=== PATIENT | male | born 1930 | race Caucasian/White ===

== ENCOUNTER 2016-06-16 13:39 | Day surgery (SDC) | payer OTHER ==
[~2016-06-16 13:39] MED LIST: ACET325 PO; ASPI81TA45 PO; COUM3TAB PO; COUM6TAB PO; FURO1TAB93 PO; LISI-363 PO; SIMV10TA PO; TAMS5CAP PO; [UNRECOGNIZED DRUG - CODE] PO
[2016-06-16 14:09] VITALS: BP 145/68; PULSE 52; RESP 20; TEMP 97.5; O2SAT 94
[2016-06-17] MEDS ORDERED: AMIO200T PO (15:09)
[2016-06-17] MEDS ORDERED: JANT4TAB PO (15:09)
[2016-06-17] MEDS ORDERED: CHOL50008 PO (15:09)
[2016-06-17] MEDS ORDERED: TAMS0.4C4 PO (15:09)
[2016-06-17] MEDS ORDERED: VITA500C9 CHEW (15:09)
[2016-06-17] MEDS ORDERED: LISI40TA PO (15:09)
[2016-06-17] MEDS ORDERED: AMLO5TAB2 PO (15:09)
[2016-06-17] MEDS ORDERED: MULT1TAB84 PO (15:09)
--- NOTE | 2016-06-18 08:47 | RADRPT ---
EXAM DATE/TIME: 06/16/2016 14:13 [facility] COMPARISON : No previous studies available for comparison. 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 The patient subsequently underwent MRI imaging which confir med enhancement. This was followed by CT directed biopsy which was positive for renal cell carcinoma. The patient for evaluation for treatment of the lesion with cryoablation. PAST MEDICAL HISTORY : 1. Hypertension. 2. Diabetes mellitus 2. 3. Atrial fibrilation Enlarge prostate PAST SURGICAL HISTORY : umbilical hernia repair Social alcohol use. Tobacco;none. 1. NKDA MEDICATIONS: 1. jantoven 4 mg mg q.d. 2. amlodipine 5 mg q.h.s. 3. Flomax 0.4 q.h.s. 4. vitmin C 500 mg q.d. 5. Vitanin D 3 5000 ui q.d. 6. Amiodarone 200 mg q.d. 7. Centrum silver 1 tab q.d. lisinopril 40 mg q.d. PHYSICAL EXAMINATION: Limited physical examination was performed. Lungs: CTA. Cardiovascular: RRR Abdomen: Soft, nontender. Patient is post umbilical hernia repair. Extremities: Within normal limits. IMAGING STUDIES: The patient's previous CT scans and MRI scans from [facility] were reviewed. These do confirm a 3.1 cm mass in the right kidney suspicious for malignancy. ASSESSMENT: 86-year-old with a 3.1 cm right renal mass which biopsy confirmed for renal cell carcinoma. The locat ion of the mass is along the superior lateral margin of the kidney. Access to this may be somewhat di fficult. Patient is otherwise acceptable candidate for cryoablation. PLAN: We will have the patient return for the cryoablation procedure. Will place the patient in the scanner and assess the location of the mass to determine if the patient to be effectively positioned to allo w access for cryoablation. The risks, benefits and potential complications were discussed at length w ith the patient and his daughter. The patient understands these. 1. The patient was advised to discontinue his Coumadin. We will obtain the labs on arrival the elier wang of the procedure. TIME SPENT: 30 minutes. Jey Trevñio MD on June 18, 2016 at 8:39 Board Certified Radiologist. This report was verified electronically.
== END 2016-06-16 15:30 | disposition home or self-care (01) ==
LOC: HRAD 13:39 → HRIP 13:48 → HRAD 15:30
PROVIDERS: ATTEND Radiology Body Imaging
DX: C64.9 Malignant neoplasm of unspecified kidney, except renal pelvis (principal); I10 Essential (primary) hypertension; E11.9 Type 2 diabetes mellitus without complications; I48.91 Unspecified atrial fibrillation

== ENCOUNTER 2016-06-18 06:46 | Inpatient (IN) | payer OTHER, MEDICARE ==
[2016-06-18] VITALS (7 sets, daily range): BP systolic 123–153; BP diastolic 63–70; PULSE 48–60; RESP 20; TEMP 97.5–97.6; O2SAT 90–95
[~2016-06-18] VITALS: Ht 180.3 cm; Wt 76.5 kg
[~2016-06-18 06:46] MED LIST changes: +AMIO200T PO; +AMLO5TAB2 PO; -ASPI81TA45 PO; +CHOL50008 PO; -COUM3TAB PO; -COUM6TAB PO; -FURO1TAB93 PO; +JANT4TAB PO; +LISI40TA PO; +MULT1TAB84 PO; -SIMV10TA PO; +TAMS0.4C4 PO; -TAMS5CAP PO; +VITA500C9 CHEW; -[UNRECOGNIZED DRUG - CODE] PO
[2016-06-18] MEDS ORDERED: SODIUM CHLOR 0.9% 1000 ML INJ 1,000 ML IV SCH (07:15)
[2016-06-18] MEDS ORDERED: INSULIN HUMAN REGULAR 1,000 UNITS/10 ML VIAL SQ PRN (07:30)
[2016-06-18] MEDS ORDERED: LACTATED RINGER'S 1000 ML IV PRN (07:30)
[2016-06-18] MEDS ORDERED: POVIDONE IODINE 5% (ANTISEPSIS KIT) 4 APPLICATIONS EACH NARE PRN (07:30)
[2016-06-18] MEDS ORDERED: SODIUM CHLORID 0.9% 500 ML IV PRN (07:30)
[2016-06-18] MEDS ORDERED: METOPROLOL TARTRATE 25 MG TAB PO PRN (07:30)
[2016-06-18] MEDS ORDERED: CHLORHEXIDINE GLUCONATE 2 % 1 PACK (2 CLOTHS) TOPICAL PRN (07:30)
[2016-06-18] MEDS ORDERED: PROPOFOL 200 MG/20 ML AMP IV ONE (07:53)
[2016-06-18] MEDS ORDERED: ONDANSETRON HCL 4 MG/2 ML VIAL IV PUSH ONE (07:54)
[2016-06-18] MEDS ORDERED: NEOSTIGMINE 3 MG/3 ML SYR IV ONE (07:54)
[2016-06-18 08:25] LABS: AUTOMATED NEUTROPHIL # 4.1 TH/MM3 (1.8-7.7); BASOPHIL % 0.8 % (0.0-2.0); EOSINOPHIL # 0.3 TH/MM3 (0-0.4); EOSINOPHIL % 5.1 % (0.0-4.0); HEMATOCRIT 33.1 % (39.0-51.0); HEMO FLAGS DIFF FINAL; LYMPH % 14.7 % (9.0-44.0); LYMPHOCYTE # 0.9 TH/MM3 (1.0-4.8); MEAN CELL VOLUME 94.6 FL (80.0-100.0); MEAN CORPUSCULAR HGB CONC 32.8 % (32.0-36.0); MONO % 9.1 % (0.0-8.0); NEUT % 70.3 % (16.0-70.0); PLATELET COUNT 181 TH/MM3 (150-450); RED CELL DISTRIBUTION WIDTH 15.6 % (11.6-17.2); WHITE BLOOD COUNT 5.8 TH/MM3 (4.0-11.0)
--- NOTE | 2016-06-18 08:29 | EKG ---
Date Performed: 06/18/2016 Time Performed: 07:28:44 PTAGE: 86 years EKG: SINUS BRADYCARDIA WITH FIRST DEGREE AV BLOCK RIGHT BUNDLE BRANCH BLOCK LEFT ANTERIOR FASCIC ULAR BLOCK LEFT VENTRICULAR HYPERTROPHY AND ST-T CHANGE ABNORMAL ECG PREVIOUS TRACING : 03/14/2013 02.54 DOCTOR: Norm Amato Interpretating Date/Time 06/18/2016 08:28:21
[2016-06-18 08:37] LABS: APTT (PATIENT) 27.1 SEC (24.3-30.1); PROTHROMBIN TIME - PATIENT 11.3 SEC (9.8-11.6)
[2016-06-18 08:41] LABS: BICARBONATE 24.6 MEQ/L (21.0-32.0); POTASSIUM 4.1 MEQ/L (3.5-5.1)
[2016-06-18] MEDS ORDERED: LIDOCAINE 1%/EPINEPHrine 1:100,000 SOLN 20 ML VIAL ONE (09:49)
[2016-06-18] MEDS: ceFAZolin 2 GM PREMIX 50 ML IV SCH ×2 (10:30→16:43)
[2016-06-18] MEDS ORDERED: fentaNYL CITRATE 250 MCG/5 ML AMP ONE (10:45)
--- NOTE | 2016-06-18 12:20 | PD.RAD ---
Post Procedure Progress Note Pre Procedure Diagnosis: (1) Renal cell carcinoma of right kidney Post Procedure Diagnosis: (1) Renal cell carcinoma of right kidney Procedure Date: June 18, 2016 Supervising Radiologist: Jey Treviño Estimated blood loss: 5cc Plan of Activity Patient to Unit: ROPU Patient Condition: Good Additional Comments: Small perinephric hematoma following needle placement. No evidence of enlargement during or on post procedure CT. Pt. tolerated the procedure without difficulty. Full dictated report to follow. See PACS Report for procedural detail/treatment Jey Treviño MD June 18, 2016 12:20
[2016-06-18] MEDS ORDERED: DO NOT ADM ANY ANTICOAGULANT DRUGS PRN (12:30)
[2016-06-18] MEDS ORDERED: *RESP: ALBUTEROL 2.5 MG/3 ML NEB (PRN) PERIprocedural Use ONLY NEB ONE (13:20)
--- NOTE | 2016-06-18 13:44 | RADRPT ---
EXAM DATE/TIME: 06/18/2016 09:56 INDICATIONS : Right renal mass Anesthesia and pain control was provided by the Anesthesia department. Prophylactic antibiotics were administered with appropriate pre-procedure timing. Vancomycin within 2 hrs of procedure, Ancef (or alternative) within 1 hr of procedure start. Intra-procedural antibiotics were given as prescribed above. DEVICE(S): 1.) Cryoablation probe MEDICAL HISTORY : Hypertension. Congestive heart failure. SURGICAL HISTORY : Unobtainable ENCOUNTER: Initial ACUITY: 1 day PAIN SCORE: 0/10 LOCATION: Right flank PROCEDURE : 1. CT guided cryoablation. Under sterile conditions and using aseptic technique with CT guidance the mass was localized and sati sfactory approach was taken to access the lesion. Using automated exposure control and adjustment of the mA and/or kV according to patient size, radiation dose was kept as low as reasonably achievable to obtain optimal diagnostic quality images. The lesion along the lateral margin of the right kidney was easily identified. 2 [employer] Cryopr obes were employed using percutaneous CT-guided technique. Position within the lesion was confirmed. A freeze-thaw, freeze-thaw technique was employed and serial imaging demonstrated an ice ball encompa ssing the entire lesion. Post procedure images demonstrate expected postoperative changes without ev idence of hematoma. CONCLUSION: Uncomplicated cryoablation as above. Jey Treviño MD on June 18, 2016 at 13:41 Board Certified Radiologist. This report was verified electronically.
[2016-06-18 17:06] LABS: AUTOMATED NEUTROPHIL # 6.8 TH/MM3 (1.8-7.7); BASOPHIL % 0.3 % (0.0-2.0); EOSINOPHIL # 0.1 TH/MM3 (0-0.4); EOSINOPHIL % 1.2 % (0.0-4.0); HEMATOCRIT 30.2 % (39.0-51.0); HEMO FLAGS DIFF FINAL; LYMPH % 8.9 % (9.0-44.0); LYMPHOCYTE # 0.7 TH/MM3 (1.0-4.8); MEAN CELL VOLUME 95.3 FL (80.0-100.0); MEAN CORPUSCULAR HEMOGLOBIN 31.8 PG (27.0-34.0); MEAN CORPUSCULAR HGB CONC 33.4 % (32.0-36.0); MONO % 7.1 % (0.0-8.0); NEUT % 82.5 % (16.0-70.0); PLATELET COUNT 166 TH/MM3 (150-450); RED BLOOD COUNT 3.17 MIL/MM3 (4.50-5.90); RED CELL DISTRIBUTION WIDTH 15.7 % (11.6-17.2); WHITE BLOOD COUNT 8.2 TH/MM3 (4.0-11.0)
--- NOTE | 2016-06-18 21:10 | HHI.HP ---
[facility] Non[facility]Staff Admission Diagnosis Urinary retention, right renal cell carcinoma Diagnoses: (1) Renal cell carcinoma of right kidney (2) Urinary retention (3) Hematuria (4) Acute on chronic renal failure (5) Bradycardia Chief Complaint: renal cell carcinoma for ablation with post-procedure urinary retention Travel History International Travel<30 Days: No Contact w/Intl Traveler <30 Da: No Traveled to Known Affected Are: No History of Present Illness Mr. Talley is a 86 year-old male with a 3.1 cm renal cell carcinoma right kidney, atrial fibrillation on Coumadin and flecainide, diet controlled type 2 diabetes mellitus, hypertension, and BPH who presented to the hospital on 06/18/2016 for tissue cryoablation of a renal mass. Urinary retention occurred following procedure with concern for emboli from cryoablation causing obstruction. A Ann catheter was attempted in IR but could not be placed. Dr. Girish Hartley, urologist, to see for cystoscopy guided Ann insertion. The patient is seen in his hospital room. He reports that he had a "pre- arranged procedure" for right renal cell carcinoma which was diagnosed in October 2015 while he was hospitalized for diverticulitis. He says that he had to be admitted because anesthesia "messes everything up". He says he was unable to urinate and multiple people have a hard time trying to catheterize him. Finally, Dr. Hartley was able to catheterize him and explained to him that a valve between the bladder and the urethra was "closed". The catheter is noted to be draining a dark red bloody tinged urine. He reports occasional shortness of breath but denies any history of COPD. He denies any fevers, chest pain, nausea, vomiting, or diarrhea. He reports a history of urinary hesitancy due to BPH. He complains of vocal hoarseness following intubation for procedure today. He uses a 4 wheel walker at home for ambulation as he has long-standing paresthesias in his right leg (has had for years) that causes imbalance. He is very cautious when standing up and moving about because he is fearful of falling. He reports mild swelling in lower extremities. He denies coronary artery disease, COPD or any other breathing problems, thyroid dysfunction, seizures, and problems with blood clots such as DVT, PE or CVA. Dr. Allen Jeronimo is urologist Dr. 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 Past Surgical History Right renal cell carcinoma cryoablation by Dr. Treviño 06/18/16 Umbilical hernia surgery in the 1970s Basal and squamous cell skin cancer removals . 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 Ordered Medications Current Medications Sodium Chloride 1,000 ml @ 30 mls/hr Q24H IV Last administered on 06/18/16 07: 15; Start 06/18/16 at 07:15; Stop 06/19/16 at 07:14 Cefazolin Sodium/ Dextrose 50 ml @ 100 mls/hr TOBACCO EDUCATOR IV Last administered on 06/18/16 10:30; Start 06/18/16 at 07:15; Stop 06/21/16 at 07:14 Lactated Ringer's 1,000 ml @ 30 mls/hr Q24H PRN IV SEE LABEL COMMENTS; Start at 07:30; Stop 06/21/16 at 07:29 Sodium Chloride (NS 500 ml Inj) 500 ml @ 30 mls/hr [id number] PRN IV SEE LABEL COMMENTS; Start 06/18/16 at 07:30; Stop 06/21/16 at 07:29 Metoprolol Tartrate (Lopressor) 25 mg TOBACCO EDUCATOR PRN PO SEE LABEL COMMENTS; Start 06/18/16 at 07:30; Stop 06/21/16 at 07:29 Povidone Iodine (Betadine 5% Antisepsis Kit) 1 applic TOBACCO EDUCATOR PRN EACH NARE SEE LABEL COMMENTS; Start 06/18/16 at 07:30; Stop 06/21/16 at 07:29 Chlorhexidine Gluconate (Chlorhexidine 2% Cloth) 3 pack TOBACCO EDUCATOR PRN TOPICAL SEE LABEL COMMENTS; Start 06/18/16 at 07:30; Stop 06/21/16 at 07:29 Insulin Human Regular (NovoLIN R INJ) See Protocol Table ... TOBACCO EDUCATOR PRN SQ SEE PROTOCOL TABLE; Start 06/18/16 at 07:30; Stop 06/21/16 at 07:29 Lidocaine/ Epinephrine (Xylocaine-Epi 1%-1:100,000 Inj) 20 ml STK-MED ONCE .ROUTE ; Start 06/18/16 at 09:49; Stop 06/18/16 at 09:50; Status DC Fentanyl Citrate (fentaNYL INJ) 250 mcg STK-MED ONCE .ROUTE ; Start 06/18/16 at 10:45; Stop 06/18/16 at 10:46; Status DC Miscellaneous Information ALL NURSING DEPARTME... UNSCH PRN .XX SEE LABEL COMMENTS; Start 06/18/16 at 12:30; Stop 06/19/16 at 12:29 Albuterol Sulfate 2.5 mg 2.5 mg STK-MED ONCE NEB Last administered on 06/18/16t 13:20; Start 06/18/16 at 13:20; Stop 06/18/16 at 13:21; Status DC Sodium Chloride (1/2 NS 1000 ml Inj) 1,000 ml @ 84 mls/hr [id number] IV ; Start at 20:00 . Family History Older brother smoked cigarettes and age 52 y/o from lung cancer Another brother from leukemia age 83 y/o Mother with breast cancer Father with hypertension - cause of unknown . 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 Physical Exam Vital Signs Vital Signs Date Time Temp Pulse Resp B/P Pulse Ox O2 Delivery O2 Flow Rate FiO2 06/18/16 16:00 52 20 129/68 95 06/18/16 15:30 50 20 132/65 95 06/18/16 15:00 48 20 123/66 95 06/18/16 14:30 97.6 48 20 133/63 95 06/18/16 14:05 97.4 48 15 130/72 95 Nasal Cannula 3 06/18/16 13:45 48 15 122/64 95 Nasal Cannula 3 06/18/16 13:30 47 16 124/68 95 Nasal Cannula 3 06/18/16 13:15 50 15 121/60 96 Nasal Cannula 3 06/18/16 13:00 96.5 48 15 121/56 96 Nasal Cannula 3 06/18/16 12:45 50 15 121/60 96 Nasal Cannula 3 06/18/16 12:43 95.0 54 14 123/60 95 Nasal Cannula 3 06/18/16 07:03 97.6 54 20 148/64 90 Physical Exam GENERAL: This is a well-nourished, well-developed patient, in no apparent distress. SKIN: No rashes, ecchymoses or lesions. Cool and dry. HEAD: Atraumatic. Normocephalic. EYES: No scleral icterus. No injection or drainage. ENT: Nose without bleeding, purulent drainage. NECK: Trachea midline. No JVD or lymphadenopathy. CARDIOVASCULAR: Regular rate and rhythm without murmurs, gallops, or rubs. 1+ nonpitting edema in bilateral lower extremities. RESPIRATORY: Clear to auscultation. Breath sounds equal bilaterally. No wheezes , rales, or rhonchi. GASTROINTESTINAL: Abdomen soft, non-tender, nondistended. No guarding. MUSCULOSKELETAL: Extremities without clubbing, cyanosis, or edema. No calf tenderness. NEUROLOGICAL: Awake and alert. Motor and sensory grossly within normal limits. Normal speech. Resting tremors noted upper extremities. . Laboratory Laboratory Tests Test 06/18/16 06/18/16 07:55 16:55 White Blood Count 5.8 8.2 Red Blood Count 3.50 3.17 Hemoglobin 10.9 10.1 Hematocrit 33.1 30.2 Mean Corpuscular Volume 94.6 95.3 Mean Corpuscular Hemoglobin 31.0 31.8 Mean Corpuscular Hemoglobin 32.8 33.4 Concent Red Cell Distribution Width 15.6 15.7 Platelet Count 181 166 Mean Platelet Volume 9.0 8.5 Neutrophils (%) (Auto) 70.3 82.5 Lymphocytes (%) (Auto) 14.7 8.9 Monocytes (%) (Auto) 9.1 7.1 Eosinophils (%) (Auto) 5.1 1.2 Basophils (%) (Auto) 0.8 0.3 Neutrophils # (Auto) 4.1 6.8 Lymphocytes # (Auto) 0.9 0.7 Monocytes # (Auto) 0.5 0.6 Eosinophils # (Auto) 0.3 0.1 Basophils # (Auto) 0.0 0.0 CBC Comment DIFF FINAL DIFF FINAL Differential Comment Prothrombin Time 11.3 Prothromb Time International 1.0 Ratio Activated Partial 27.1 Thromboplast Time Sodium Level 141 Potassium Level 4.1 Chloride Level 110 Carbon Dioxide Level 24.6 Anion Gap 6 Blood Urea Nitrogen 48 Creatinine 2.11 Estimat Glomerular Filtration 30 Rate Random Glucose 115 Calcium Level 8.8 Result Diagram: 06/18/16 1655 06/18/16 [address] Guided Tissue Ablation 06/18/16 0924 Signed Impressions: Service Date/Time: Saturday, June 18, 2016 09:56 - CONCLUSION: Uncomplicated cryoablation as above. Jey Treviño MD . Assessment and Plan Problem List: (1) Renal cell carcinoma of right kidney ICD Code: C64.1 Status: Acute (2) Urinary retention ICD Code: R33.9 Status: Acute (3) Hematuria ICD Code: R31.9 Status: Acute (4) Bradycardia ICD Code: R00.1 Status: Acute (5) Acute on chronic renal failure ICD Code: N17.9 Status: Acute Assessment and Plan Mr. Talley is a 86 year-old male with a 3.1 cm renal cell carcinoma right kidney, atrial fibrillation on Coumadin and flecainide, hypertension, and BPH who presented to the hospital on 06/18/2016 for tissue cryoablation of a renal mass. Urinary retention occured following procedure with concern for emboli from cryoablation causing obstruction. A ann catheter was attempted in IR but could not be placed. Dr. Girish Hartley, urologist, to see for cystoscopy guided ann insertion. Right renal cell carcinoma s/p cryoablation with urinary retention and concern for embolic urinary tract obstruction - Urology consulted - Dr. Hartley for Ann catheter placement/assistance with retention Hematuria s/p catheter placement - hold Coumadin/Jantoven - repeat H&H at 06/19/16 at 0000 and CBC in a.m. - follow trends - flush Ann q2h prn blood clots Acute on stage 3 chronic kidney failure likely secondary to dehydration - BUN 48, creatinine 2.11, estimated GFR 30 on admission - hold Lisinopril for now - monitor bp closely - cautious IVF hydration with NS at 84 cc/hr - monitor closely for fluid overload given history of CHF - repeat BMP in a.m. - follow results - avoid nephrotoxins Bradycardia, asymptomatic - continuous cardiac telemetry to monitor for cardiac arrhythmias - monitor VS q4h DVT prophylaxis - SCDs - chemoprophylaxis contraindicated due to hematuria Written by Юлия Rosado, acting as scribe for Dr. William on 06/18/16 at 21:10. .This note was transcribed by scribe [Юлия Rosado]. I, Dr. Jose Armando William personally performed the history, physical exam, and medical decision making; and confirmed the accuracy of the information in the transcribed note. Authenticated by Dr. Jose Armando William on 06/18/16 at 21:10. 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 Problem Qualifiers (1) Acute on chronic renal failure: Qualified Code: N17.9 - Acute renal failure superimposed on stage 3 chronic kidney disease, unspecified acute renal failure type Юлия Rosado June 18, 2016 21:10 Jose Armando William MD Jul 28, 2016 11:56
[2016-06-18] MEDS ORDERED: TAMSULOSIN HCL 0.4 MG CAP PO SCH (21:15)
[2016-06-18] MEDS ORDERED: DEXTROSE 50% IN WATER 50 ML VIAL(D50) IV PUSH PRN (21:30)
[2016-06-18] MEDS ORDERED: GLUCAGON 1 MG/ML VIAL OTHER PRN (21:30)
[2016-06-18] MEDS ORDERED: ONDANSETRON HCL 4 MG/2 ML VIAL IVP PRN (22:00)
[2016-06-18] MEDS ORDERED: SODIUM CHLORIDE 0.9% FLUSH 10 ML FLUSH IV FLUSH PRN (22:00)
[2016-06-18] MEDS ORDERED: NALOXONE HCL 0.4 MG/ML AMP IV PRN (22:00)
[2016-06-18] MEDS ORDERED: ACETAMINOPHEN 325 MG TAB PO PRN (22:00)
[2016-06-18] MEDS: TAMSULOSIN HCL 0.4 MG CAP PO SCH (23:25)
[2016-06-18] MEDS: SODIUM CHLOR 0.45% 1000 ML INJ 1,000 ML IV SCH (23:27)
[2016-06-18 23:59] LABS: HEMATOCRIT 29.9 % (39.0-51.0); REVIEW FLAG FINAL
[2016-06-19] VITALS (9 sets, daily range): BP systolic 139–161; BP diastolic 61–72; PULSE 53–62; RESP 17–20; TEMP 97.1–99.3; O2SAT 91–96
[2016-06-19 05:37] LABS: BASOPHIL % 0.3 % (0.0-2.0); EOSINOPHIL # 0.1 TH/MM3 (0-0.4); EOSINOPHIL % 1.2 % (0.0-4.0); HEMATOCRIT 31.4 % (39.0-51.0); HEMO FLAGS DIFF FINAL; LYMPH % 4.9 % (9.0-44.0); LYMPHOCYTE # 0.4 TH/MM3 (1.0-4.8); MEAN CELL VOLUME 94.8 FL (80.0-100.0); MEAN CORPUSCULAR HEMOGLOBIN 31.5 PG (27.0-34.0); MEAN CORPUSCULAR HGB CONC 33.3 % (32.0-36.0); MONO % 8.1 % (0.0-8.0); NEUT % 85.5 % (16.0-70.0); PLATELET COUNT 152 TH/MM3 (150-450); RED BLOOD COUNT 3.31 MIL/MM3 (4.50-5.90); RED CELL DISTRIBUTION WIDTH 15.6 % (11.6-17.2); WHITE BLOOD COUNT 8.2 TH/MM3 (4.0-11.0)
[2016-06-19 05:58] LABS: BICARBONATE 22.7 MEQ/L (21.0-32.0)
[2016-06-19] MEDS: ASCORBIC ACID 500 MG TAB PO SCH (08:13)
[2016-06-19] MEDS: AMIODARONE 200 MG TAB PO SCH (08:13)
[2016-06-19] MEDS: MULTIVITAMINS/MINERALS THERAPEUTIC TAB PO SCH (08:13)
--- NOTE | 2016-06-19 08:25 | PD.CONS ---
HPI Service Urology Consult Requested By Primary Care Physician Non-Staff Diagnosis: (1) Renal cell carcinoma of right kidney ICD Code: C64.1 (2) Urinary retention ICD Code: R33.9 (3) Hematuria ICD Code: R31.9 (4) Bradycardia ICD Code: R00.1 (5) Acute on chronic renal failure ICD Code: N17.9 History of Present Illness 86-year-old male presented for cryoablation of a 3.1 cm right renal mass. Patient was found to be in urinary retention and a Dawson was unable to replace by the IR staff. Urology was consult with and initially a attempt was made to pass a catheter which was unsuccessful. Flexible cystoscopy was required to be performed at the bedside and a Dawson was placed over a wire. The patient has a history of BPH and is on Flomax. His urologist is Dr. Babin in [facility]. Review of Systems Constitutional: DENIES: Diaphoretic episodes Eyes: DENIES: Blurred vision Ears, nose, mouth, throat: DENIES: Tinnitus Cardiovascular: DENIES: Chest pain Gastrointestinal: DENIES: Abdominal pain Genitourinary: COMPLAINS OF: Sexual dysfunction Integumentary: COMPLAINS OF: Abnormal pigmentation Immunologic/allergic: DENIES: Eczema Neurologic: DENIES: Abnormal gait Psychiatric: DENIES: Anxiety Past Family Social History Past Medical History Diverticulitis CHF BPH Diabetes mellitus Hypertension Skin cancer Past Surgical History Cryoablation of right renal mass Excision of skin cancer Umbilical hernia repair Allergies: Coded Allergies: *MDRO Multi-Drug Resistant Organism (Verified Allergy, Unknown, 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 Family History Denies a family history of prostate cancer Social History Presently denies smoking or drinking Physical Exam Vital Signs Date Time Temp Pulse Resp B/P Pulse Ox O2 Delivery O2 Flow Rate FiO2 06/19/16 08:00 97.3 54 19 161/66 96 06/19/16 04:00 97.9 56 20 156/72 92 06/19/16 00:00 97.1 54 20 155/69 93 06/18/16 22:15 92 21 06/18/16 20:00 97.5 60 20 153/70 92 06/18/16 16:00 52 20 129/68 95 06/18/16 15:30 50 20 132/65 95 06/18/16 15:00 48 20 123/66 95 06/18/16 14:30 97.6 48 20 133/63 95 06/18/16 14:05 97.4 48 15 130/72 95 Nasal Cannula 3 06/18/16 13:45 48 15 122/64 95 Nasal Cannula 3 06/18/16 13:30 47 16 124/68 95 Nasal Cannula 3 06/18/16 13:15 50 15 121/60 96 Nasal Cannula 3 06/18/16 13:00 96.5 48 15 121/56 96 Nasal Cannula 3 06/18/16 12:45 50 15 121/60 96 Nasal Cannula 3 06/18/16 12:43 95.0 54 14 123/60 95 Nasal Cannula 3 Physical Exam GENERAL: This is a well-nourished, well-developed patient, in no apparent distress. SKIN: No rashes, ecchymoses or lesions. Cool and dry. HEAD: Atraumatic. Normocephalic. No temporal or scalp tenderness. EYES: Pupils equal round and reactive. Extraocular motions intact. No scleral icterus. No injection or drainage. ENT: Nose without bleeding, purulent drainage or septal hematoma. Throat without erythema, tonsillar hypertrophy or exudate. Uvula midline. Airway patent. NECK: Trachea midline. No JVD or lymphadenopathy. Supple, nontender, no meningeal signs. CARDIOVASCULAR: Regular rate and rhythm without murmurs, gallops, or rubs. RESPIRATORY: Clear to auscultation. Breath sounds equal bilaterally. No wheezes , rales, or rhonchi. GASTROINTESTINAL: Abdomen soft, non-tender, nondistended. No hepato-splenomegaly , or palpable masses. No guarding. GENITOURINARY: Normal phallus, uncircumcised testes descended MUSCULOSKELETAL: Extremities without clubbing, cyanosis, or edema. No joint tenderness, effusion, or edema noted. No calf tenderness. Negative Homans sign bilaterally. NEUROLOGICAL: Awake and alert. Cranial nerves II through XII intact. Motor and sensory grossly within normal limits. Five out of 5 muscle strength in all muscle groups. Normal speech. Laboratory Tests Test 06/18/16 06/18/16 06/19/16 16:55 23:53 04:31 White Blood Count 8.2 8.2 Red Blood Count 3.17 3.31 Hemoglobin 10.1 10.1 10.4 Hematocrit 30.2 29.9 31.4 Mean Corpuscular Volume 95.3 94.8 Mean Corpuscular Hemoglobin 31.8 31.5 Mean Corpuscular Hemoglobin 33.4 33.3 Concent Red Cell Distribution Width 15.7 15.6 Platelet Count 166 152 Mean Platelet Volume 8.5 9.6 Neutrophils (%) (Auto) 82.5 85.5 Lymphocytes (%) (Auto) 8.9 4.9 Monocytes (%) (Auto) 7.1 8.1 Eosinophils (%) (Auto) 1.2 1.2 Basophils (%) (Auto) 0.3 0.3 Neutrophils # (Auto) 6.8 7.0 Lymphocytes # (Auto) 0.7 0.4 Monocytes # (Auto) 0.6 0.7 Eosinophils # (Auto) 0.1 0.1 Basophils # (Auto) 0.0 0.0 CBC Comment DIFF FINAL DIFF FINAL Differential Comment Sodium Level 139 Potassium Level 5.0 Chloride Level 108 Carbon Dioxide Level 22.7 Anion Gap 8 Blood Urea Nitrogen 45 Creatinine 2.31 Estimat Glomerular Filtration 27 Rate Random Glucose 141 Calcium Level 8.4 Result Diagram: 06/19/16 0431 06/19/16 [address] Guided Tissue Ablation 06/18/1624 Signed Impressions: Service Date/Time: Saturday, June 18, 2016 09:56 - CONCLUSION: Uncomplicated cryoablation as above. Jey Treviño MD Hospital Course Procedure note: Patient was prepped and draped in usual sterile fashion. Flexible cystoscopy was performed at the bedside. Coapting prosthetic lobes were identified. The bladder was then entered and trabeculations were noted throughout. Wire was placed through the cystoscope and then a 16 [place]ican teller tip catheter was then passed over a wire. He tolerated procedure well. Assessment and Plan Assessment and Plan 86-year-old male status post right renal cryoablation for 3.1 cm renal mass. Flexible cystoscopy was performed at the bedside with placement of a catheter over a wire. Continue Flomax Follow-up with Dr. Jeronimo next week for a void trial. Girish Hartley DO June 19, 2016 08:25
[2016-06-19] MEDS ORDERED: PNEUMOCOCCAL POLYVALENT INJ 25 MCG/0.5 ML SYR IM ONE (09:00)
[2016-06-19] MEDS ORDERED: NON-FORMULARY DRUG (Ascorbic Acid (Vitamin C) 500 MG) CHEW SCH (09:00)
[2016-06-19] MEDS ORDERED: amLODIPine BESYLATE 5 MG TAB PO SCH (09:00)
[2016-06-19] MEDS: SODIUM CHLOR 0.45% 1000 ML INJ 1,000 ML IV SCH (09:12)
--- NOTE | 2016-06-19 09:34 | PD.RAD ---
Radiology Note 86 Y/O POD #1 right renal cryoablation. Pt was admitted yesterday due to mild hematuria. Pt seen today AFVSS. Urine has cleared. No complaints related to the procedure H/H= 12/16.4 which is stable compared to yesterday A/P Patient is stable urine has cleared. 1. DC ann 2. DC to home if cleared by admitting service Jey Treviño MD June 19, 2016 09:34
[2016-06-19] MEDS ORDERED: AMLO5TAB2 PO (09:54)
--- NOTE | 2016-06-19 09:58 | HHI.DCPOC ---
Discharge Care Plan Diagnosis: (1) CKD (chronic kidney disease) (2) Renal cell carcinoma of right kidney Additional Problems His follow-up with Dr. Jeronimo, as well as Dr. Treviño as outpatient. Goals to Promote Your Health * To prevent worsening of your condition and complications * To maintain your health at the optimal level Directions to Meet Your Goals Take your medications as prescribed Follow your dietary instruction Follow activity as directed Keep your appointments as scheduled Take your immunizations and boosters as scheduled If your symptoms worsen call your PCP, if no PCP go to Urgent Care Center or Emergency Room Smoking is Dangerous to Your Health. Avoid second hand smoke Call the 24-hour hour crisis hotline for domestic abuse at Allen Jacobs MD June 19, 2016 09:58
[2016-06-19] MEDS ORDERED: RESP: ALBUTEROL 2.5 MG/IPRATROPIUM 0.5 MG NEB (SCH) NEB ONE (12:15)
[2016-06-19 13:05] LABS: BLOOD GAS BASE EXCESS -3.1 mmol/L (-2-2); BLOOD GAS HCO3 21 mmol/L (22-26); BLOOD GAS METHEMOGLOBIN 0.9 % (0-2); BLOOD GAS O2 HGB SATURATION 87 % (90-100); BLOOD GAS OXYGEN CONTENT 13.3 Vol % (12.0-20.0); BLOOD GAS PCO2 37 mmHg (38-42); BLOOD GAS PO2 57 mmHg (61-120); BLOOD GAS TOTAL HGB 10.8 G/DL (12.0-16.0); TEMP CORR TO 98.6
[2016-06-19 13:08] LABS: OXYGEN DEVICE NASAL CANNULA
[2016-06-19 13:09] LABS: DRAW SITE RT RADIAL; LITER FLOW 3 L/M; NUMBER OF ARTERIAL PUNCTURES 1; ULNAR PULSE PRESENT
[2016-06-19 13:11] LABS: CRITICAL VALUE YES; STAT NO
--- NOTE | 2016-06-19 13:21 | RADRPT ---
EXAM DATE/TIME: 06/19/2016 12:14 [facility] COMPARISON: CHEST SINGLE AP, March 13, 2013, 14:57. INDICATIONS : Short of breath. MEDICAL HISTORY : Hypertension. Congestive heart failure. SURGICAL HISTORY : None. ENCOUNTER: Subsequent ACUITY: 2 days PAIN SCORE: 0/10 LOCATION: Bilateral chest FINDINGS: A single portable frontal view the chest shows bibasilar pulmonary infiltrates. Tiny right effusion. Heart is enlarged. Pulmonary vascular engorgement observed. A degenerative and scoliotic spine. CONCLUSION: Pulmonary edema. Naeem Avelar Jr., MD on June 19, 2016 at 13:18 Board Certified Radiologist. This report was verified electronically.
[2016-06-19] MEDS ORDERED: FUROSEMIDE 40 MG/4 ML VIAL IV PUSH ONE (15:15)
--- NOTE | 2016-06-19 15:34 | HHI.PR ---
Subjective Remarks Patient seen this morning around 10:30 AM. Says he is feeling all right. Reports mild right flank discomfort which improved with Tylenol. Denies any shortness breath, denies any cough however is on 2 L oxygen. Patient does have what he says is chronic bilateral lower extremity edema Objective Vital Signs Date Time Temp Pulse Resp B/P Pulse Ox O2 Delivery O2 Flow Rate FiO2 06/19/16 12:46 92 Nasal Cannula 3.00 06/19/16 12:00 98.2 53 17 139/61 92 06/19/16 09:15 Nasal Cannula 2.00 06/19/16 09:15 58 06/19/16 08:00 97.3 54 19 161/66 96 06/19/16 04:00 97.9 56 20 156/72 92 06/19/16 00:00 97.1 54 20 155/69 93 06/18/16 22:15 92 21 06/18/16 20:00 97.5 60 20 153/70 92 06/18/16 16:00 52 20 129/68 95 I/O 06/18/16 06/18/16 06/18/16 06/19/16 06/19/16 06/19/16 07:00 15:00 23:00 07:00 15:00 23:00 Intake Total 800 ml 288 ml 603 ml 840 ml Output Total 0 ml 625 ml 125 ml 700 ml Balance 800 ml -337 ml 478 ml 140 ml Intake Oral 120 ml 120 ml 840 ml IV Total 0 ml 168 ml 483 ml Other 800 ml Output Urine Total 0 ml 625 ml 125 ml 700 ml # Bowel Movements 0 0 0 Result Diagram: 06/19/16 0431 06/19/16 0431 Imaging Last Impressions Chest X-Ray 06/19/16 0000 Signed Impressions: Service Date/Time: June 12:14 - CONCLUSION: Pulmonary edema. Naeem Avelar Jr., MD CT Guided Tissue Ablation 06/18/16 0924 Signed Impressions: Service Date/Time: Saturday, June 18, 2016 09:56 - CONCLUSION: Uncomplicated cryoablation as above. Jey Treviño MD Objective Remarks GENERAL: Patient lying in bed. Does appear to be breathing rather heavily on 2 L of oxygen. He is alert and oriented 3. SKIN: Warm and dry. HEAD: Normocephalic. EYES: No scleral icterus. No injection or drainage. NECK: Supple, trachea midline. No JVD. CARDIOVASCULAR: Regular rate and rhythm without murmurs, gallops, or rubs. RESPIRATORY: Breath sounds equal bilaterally. No accessory muscle use. GASTROINTESTINAL: Abdomen soft, non-tender, nondistended. MUSCULOSKELETAL: No cyanosis. 2+ bilateral lower extremity edema. No erythema. Patient says this is chronic and unchanged. BACK: Nontender without obvious deformity. No CVA tenderness. A/P Assessment and Plan Mr. Talley is a 86 year-old male with a 3.1 cm renal cell carcinoma right kidney, atrial fibrillation on Coumadin and flecainide, hypertension, and BPH who presented to the hospital on 06/18/2016 for tissue cryoablation of a renal mass. Urinary retention occured following procedure with concern for emboli from cryoablation causing obstruction. A ann catheter was attempted in IR but could not be placed. Dr. Girish Hartley, urologist, to see for cystoscopy guided ann insertion. //Right renal cell carcinoma s/p cryoablation 06/18/16 with urinary retention and concern for embolic urinary tract obstruction - Urology consulted - Dr. Hartley for Ann catheter placement/assistance with retention. -06/19. Discussed with Dr. Treviño. Nursing called urology, who recommends leaving Ann in due to difficult Ann insertion and high risk of obstruction. He'll need follow-up with urology, as well as Dr. Treviño as outpatient. //Hematuria s/p catheter placement - Continue to hold Coumadin/Jantoven -06/19 Improved, light with no clots currently.- flush Ann q2h prn blood clots -We'll need to leave Ann in with leg bag, follow-up with urology as outpatient. Appreciate urology assistance. //Hypoxic respiratory failure. Acute on 06/19 // CHF exacerbation acute on 06/19. Secondary to fluid overload from IV fluids -06/19. Pulse ox in the 70s on room air. Chest x-ray ordered, personally reviewed with bilateral pulmonary edema. ABG with hypoxia. Likely secondary to IV fluids. BNP moderately elevated in the 200s. Give Lasix 40 mg IV 1 continue to monitor intake and output. Discussed with nursing. //Acute on stage 3 chronic kidney failure - BUN 48, creatinine 2.11, estimated GFR 30 on admission - Continue to hold Lisinopril for now - monitor bp closely -06/19 Discontinue IV hydration secondary to CHF exacerbation. -Continue to monitor kidney function and avoid nephrotoxins. Expect to worsen slightly secondary to renal ablation. //Type 2 diabetes mellitus. Glucose appears diet-controlled. Diabetic diet Bradycardia, asymptomatic - continuous cardiac telemetry to monitor for cardiac arrhythmias - monitor VS q4h DVT prophylaxis - SCDs - chemoprophylaxis contraindicated due to hematuria Discharge Planning Pending treatment of CHF exacerbation. Patient will need follow-up urology, Dr. Treviño as outpatient. Allen Jacobs MD June 19, 2016 15:34
--- NOTE | 2016-06-19 17:02 | EC ---
Study Study Date:06/19/2016 STUDY CONCLUSIONS SUMMARY - Left ventricle: The cavity size was normal. Wall thickness was normal. Systolic function was normal. The estimated ejection fraction was in the range of 55% to 60%. Wall motion was normal; there were no regional wall motion abnormalities. - Aortic valve: Valve area: 2.47cm^2(VTI). Valve area: 2.25cm^2 (Vmax). - Mitral valve: Mild regurgitation. - Tricuspid valve: Mild regurgitation. - Pulmonary arteries: Systolic pressure was moderately to severely increased. PA peak pressure: 64mm Hg (S). - Pericardium, extracardiac: There was a left pleural effusion. If LV function is below 40, please consider prescribing an ACEI or ARB or document rationale for non-use. PROCEDURE DATA STUDY STATUS: Elective. Procedure: Transthoracic echocardiography. Image quality was good. Scanning was performed from the parasternal, apical, and subcostal acoustic windows. Study completion: The patient tolerated the procedure well. Transthoracic echocardiography. M-mode, complete 2D, complete spectral Doppler, and color Doppler. Height: Height: 71in. Weight: Weight: 167.7lb. Body mass index: BMI: 23.4kg/m^2. Body surface area: BSA: 1.96m^2. Patient status: Inpatient. CARDIAC ANATOMY LEFT VENTRICLE: The cavity size was normal. Wall thickness was normal. Systolic function was normal. The estimated ejection fraction was in the range of 55% to 60%. Wall motion was normal; there were no regional wall motion abnormalities. AORTIC VALVE: Trileaflet; normal thickness leaflets. Doppler: Transvalvular velocity was within the normal range. There was no stenosis. No regurgitation. Valve area: 2.47cm^2(VTI). Indexed valve area: 1.26cm^2/m^2 (VTI). Valve area: 2.25cm^2 (Vmax). Indexed valve area: 1.15cm^2/m^2 (Vmax). Mean gradient: 9mm Hg (S). Peak gradient: 16mm Hg (S). AORTA: Aortic root: The aortic root was normal in size. MITRAL VALVE: Structurally normal valve. Doppler: Transvalvular velocity was within the normal range. There was no evidence for stenosis. Mild regurgitation. Peak gradient: 3mm Hg (D). LEFT ATRIUM: The atrium was normal in size. RIGHT VENTRICLE: The cavity size was normal. Wall thickness was normal. PULMONIC VALVE: Doppler: Transvalvular velocity was within the normal range. There was no evidence for stenosis. No regurgitation. TRICUSPID VALVE: Structurally normal valve. Doppler: Transvalvular velocity was within the normal range. Mild regurgitation. PULMONARY ARTERY: Systolic pressure was moderately to severely increased. RIGHT ATRIUM: The atrium was normal in size. PERICARDIUM: There was no pericardial effusion. SYSTEMIC VEINS: Inferior vena cava: The vessel was normal in size. Pleura: There was a left pleural effusion. Patient weight: 167.7lb _Ejection fraction:_ 65-75% _Fractional shortening:_ 32% up to 5Kg 5-11.5Kg 11.6-22.9Kg 23-45Kg 45-57Kg Aortic Root 7-13 <17 13-22 17-27 17-27 LA diam 6-13 <23 24-38 33-47 37-40 RVID 10-17 7-15 7-15 7-18 8-17 LVIDd 12-22 <32 24-38 33-47 37-40 LVPW 2-4 3-6 5-7 6-8 7-8 IVS 2-4 3-6 5-7 6-8 7-8 BASIC MEASUREMENTS ADULT NORMAL Left ventricle LV internal dimension, ED, chordal 46.3 mm 43-52 level, PLAX LV internal dimension, ES, chordal 34 mm 23-38 level, PLAX Fractional shortening, chordal level, *27 % >29 PLAX LV posterior wall thickness, ED 11.3 mm IVS/LVPW ratio, ED 1 <1.3 Ventricular septum Septal thickness, ED 11.3 mm Aortic valve Leaflet separation 16 mm 15-26 Aorta Root diameter, ED 31 mm Left atrium Anterior-posterior dimension 42 mm Anterior-posterior dimension index 2.14 cm/m^2 <2.2 BASIC MEASUREMENTS ADULT NORMAL Aortic valve Leaflet separation 16 mm 15-26 DOPPLER MEASUREMENTS ADULT NORMAL Main pulmonary artery Pressure, S *64 mm Hg =30 Aortic valve Peak velocity, S 203 cm/s Mean velocity, S 136 cm/s VTI, S 44.7 cm Mean gradient, S 9 mm Hg Peak gradient, S 16 mm Hg Valve area, VTI 2.47 cm^2 Valve area index, VTI 1.26 cm^2/m^2 Valve area, Vmax 2.25 cm^2 Valve area index, Vmax 1.15 cm^2/m^2 Mitral valve Peak E-wave velocity 91.8 cm/s Deceleration time *268 ms 150-230 Peak gradient, D 3 mm Hg Tricuspid valve Regurgitant peak velocity 375 cm/s Peak RV-RA gradient, S 56 mm Hg Maximal regurgitant velocity 375 cm/s Systemic veins Estimated CVP 10 mm Hg Right ventricle RV pressure, S *66 mm Hg <30 Pulmonic valve Peak velocity, S 61.7 cm/s LEGEND: Mean values are shown as u=mean value. Asterisk (*) pretty values outside specified normal range. Prepared and signed by Norm Amato [id number]
--- NOTE | 2016-06-19 17:42 | PD.CONS ---
HPI Service cardiology Consult Requested By Reason for Consult CHF Primary Care Physician Non-Staff History of Present Illness 86 year-old male with cardiac history significant for atrial fibrillation on Coumadin, RBBB, hypertension, diastolic LV dysfunction admitted on 06/18/2016 for tissue cryoablation of a renal mass. Hospital stay has been complicated by urinary retention, acute on chronic renal failure, hematuria and heart failure. Cardiology has been consulted regarding heart failure. He reports an episode of SOB post op in the setting of IV hydration. Denies chest pain, palpitations, PND, leg edema, syncope, fever, chills, nausea, vomiting or diarrhea. Review of Systems Consitutional: DENIES: Fatigue, Fever, Chills, Weight gain, Weight loss Eyes: DENIES: Amaurosis Fugax, Change in vision HEENT: DENIES: Lightheadedness, Change in hearing Respiratory: DENIES: See HPI, Cough, Snoring, Shortness of breath, Wheezing, Sputum production Cardiovascular: DENIES: See HPI, Chest pain, Palpitations, Syncope, Tachycardia Gastrointestinal: DENIES: Nausea, Vomiting, Change in bowel habits, Reflux, Bloody stools, Melena Genitourinary: DENIES: Urinary incontinence, Difficulty voiding Integumentary: DENIES: Rash Neurologic: DENIES: Tingling or numbness, Memory problems, Poor Balance, Stroke symptoms Musculoskeletal: DENIES: Joint pain, Muscle pain, Limited range of motion, Back pain Psychiatric: DENIES: Anxiety, Depression, Sleep disturbances Hematologic: DENIES: Bruising tendencies, Bleeding tendencies Endocrine: DENIES: Weight gain, Weight loss, Thyroid disease Past Family Social History Allergies: Coded Allergies: *MDRO Multi-Drug Resistant Organism (Verified Allergy, Unknown, 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 Past Medical History Diastolic HF Afib on OAC HTN RBBB Renal Mass CKD III BPH Reported Medications Reported Meds & Active Scripts Active Amlodipine (Amlodipine Besylate) 5 Mg Tab 10 Mg PO DAILY Reported Multivitamin Adults (Multiple Vitamins W/ Minerals) 1 Tab 1 Tab PO DAILY Tamsulosin (Tamsulosin HCl) 0.4 Mg Cap 0.4 Mg PO HS Jantoven (Warfarin) 4 Mg Tab 4 Mg PO DAILY Vitamin D3 (Cholecalciferol) 5,000 Unit Tab 5,000 Units PO DAILY Vitamin C (Ascorbic Acid) 500 Mg Chew 500 Mg CHEW DAILY Lisinopril 40 Mg Tab 40 Mg PO DAILY Amiodarone (Amiodarone HCl) 200 Mg Tab 200 Mg PO DAILY Active Ordered Medications Current Medications Medications (Trade) Dose Ordered Sig/Giancarlo Route Start Time Stop Time Status Last Admin (NS 500 ml Inj) 500 ml @ 30 mls/hr [id number] PRN IV 06/18/16 07:30 06/21/16 07:29 (Cordarone) 200 mg DAILY PO 06/19/16 09:00 06/19/16 08:13 (Norvasc) 5 mg DAILY PO 06/19/16 09:00 06/19/16 08:13 (Theragran M Tab) 1 tab DAILY PO 06/19/16 09:00 06/19/16 08:13 (Vitamin C) 500 mg DAILY PO 06/19/16 09:00 06/19/16 08:13 (D50w (Vial) Inj) 25 ml UNSCH PRN IV PUSH 06/18/16 21:30 (Glucagon Inj) 1 mg UNSCH PRN OTHER 06/18/16 21:30 (Flomax) 0.4 mg HS PO 06/18/16 21:45 06/18/16 23:25 (NS Flush) 2 ml UNSCH PRN IV FLUSH 06/18/16 22:00 (Tylenol) 650 mg Q4H PRN PO 06/18/16 22:00 06/19/16 08:13 (Zofran Inj) 4 mg Q6H PRN IVP 06/18/16 22:00 (Narcan Inj) 0.4 mg UNSCH PRN IV 06/18/16 22:00 Family History Noncontributory Social History No alcohol No smoking No illicit drug use Physical Exam Vital Signs Vital Signs Date Time Temp Pulse Resp B/P Pulse Ox O2 Delivery O2 Flow Rate FiO2 06/19/16 16:54 91 Nasal Cannula 4.00 06/19/16 16:00 97.2 62 17 161/64 91 06/19/16 12:46 92 Nasal Cannula 3.00 06/19/16 12:00 98.2 53 17 139/61 92 06/19/16 09:15 Nasal Cannula 2.00 06/19/16 09:15 58 06/19/16 08:00 97.3 54 19 161/66 96 06/19/16 04:00 97.9 56 20 156/72 92 06/19/16 00:00 97.1 54 20 155/69 93 06/18/16 22:15 92 21 06/18/16 20:00 97.5 60 20 153/70 92 Physical Exam GENERAL: Well-nourished, well-developed patient. SKIN: Warm and dry. HEAD: Normocephalic. EYES: No scleral icterus. No injection or drainage. NECK: Supple, trachea midline. No JVD or lymphadenopathy. CARDIOVASCULAR: Regular rate and rhythm without murmurs, gallops, or rubs. RESPIRATORY: Breath sounds equal bilaterally. No accessory muscle use. GASTROINTESTINAL: Abdomen soft, non-tender, nondistended. EXTREMITIES: No cyanosis, or edema. NEUROLOGICAL: Awake, alert, and oriented x 3. Non-focal. Laboratory Laboratory Tests Test 06/18/16 06/19/16 06/19/16 23:53 04:31 12:54 Hemoglobin 10.1 10.4 Hematocrit 29.9 31.4 White Blood Count 8.2 Red Blood Count 3.31 Mean Corpuscular Volume 94.8 Mean Corpuscular Hemoglobin 31.5 Mean Corpuscular Hemoglobin 33.3 Concent Red Cell Distribution Width 15.6 Platelet Count 152 Mean Platelet Volume 9.6 Neutrophils (%) (Auto) 85.5 Lymphocytes (%) (Auto) 4.9 Monocytes (%) (Auto) 8.1 Eosinophils (%) (Auto) 1.2 Basophils (%) (Auto) 0.3 Neutrophils # (Auto) 7.0 Lymphocytes # (Auto) 0.4 Monocytes # (Auto) 0.7 Eosinophils # (Auto) 0.1 Basophils # (Auto) 0.0 CBC Comment DIFF FINAL Differential Comment Sodium Level 139 Potassium Level 5.0 Chloride Level 108 Carbon Dioxide Level 22.7 Anion Gap 8 Blood Urea Nitrogen 45 Creatinine 2.31 Estimat Glomerular Filtration 27 Rate Random Glucose 141 Calcium Level 8.4 B-Type Natriuretic Peptide 294 Blood Gas Puncture Site RT RADIAL Blood Gas Patient Temperature 98.6 Blood Gas HCO3 21 Blood Gas Base Excess -3.1 Blood Gas Oxygen Saturation 87 Arterial Blood pH 7.38 Arterial Blood Partial 37 Pressure CO2 Arterial Blood Partial 57 Pressure O2 Arterial Blood Oxygen Content 13.3 Arterial Blood 2.0 Carboxyhemoglobin Arterial Blood Methemoglobin 0.9 Blood Gas Hemoglobin 10.8 Oxygen Delivery Device NASAL CANNULA Blood Gas Liter Flow 3 Result Diagram: 06/19/16 0431 06/19/16 0431 Imaging Last Impressions Chest X-Ray 06/19/16 0000 Signed Impressions: Service Date/Time: June 12:14 - CONCLUSION: Pulmonary edema. Naeem Avelar Jr., MD CT Guided Tissue Ablation 06/18/16 0924 Signed Impressions: Service Date/Time: Saturday, June 18, 2016 09:56 - CONCLUSION: Uncomplicated cryoablation as above. Jey Treviño MD Assessment and Plan Problem List: (1) Diastolic CHF Assessment and Plan: 86 year-old male with acute on chronic diastolic heart failure in the setting of recent urological procedure, worsening CKD and generous IV hydration. He remains afebrile, hemodynamically stable with no CV complaints. He has chronic Afib on chronic oral anticoagulation which has been stopped due to hematuria. Echocardiogram done today showed preserved LV systolic function. Recommendations: 1. Gentle IV diuresis 2. Avoid electrolytes abnormalities 3. Strict I&O 4. Cont Norvasc and Amio 5. Hold Lisinopril due to THERESA 6. Low Salt diet 7. Consider Nephro consult 8. Daily weight 9. Encourage ambulation and incentive spirometry 10. Resume anticoagulation when cleared from urological standpoint Thank you for the opportunity to participate in the care of this patient Will be available on a PRN basis for any other questions or concerns (2) Hypertension (3) Atrial fibrillation (4) Renal cell carcinoma of right kidney (5) Acute on chronic renal failure John Monsivais MD June 19, 2016 17:42
[2016-06-19 22:09] LABS: HEMOGLOBIN A1a 1.4 %; HEMOGLOBIN A1b 1.9 %; HEMOGLOBIN Ao 83.5 %
[2016-06-19] MEDS: TAMSULOSIN HCL 0.4 MG CAP PO SCH (22:26)
[2016-06-20] VITALS (7 sets, daily range): BP systolic 154–180; BP diastolic 66–80; PULSE 61–73; RESP 16–20; TEMP 97.4–99.3; O2SAT 90–95
[2016-06-20 05:00] LABS: AUTOMATED NEUTROPHIL # 9.5 TH/MM3 (1.8-7.7); BASOPHIL % 0.2 % (0.0-2.0); EOSINOPHIL % 0.2 % (0.0-4.0); HEMATOCRIT 33.9 % (39.0-51.0); LYMPH % 4.7 % (9.0-44.0); LYMPHOCYTE # 0.5 TH/MM3 (1.0-4.8); MEAN CELL VOLUME 95.1 FL (80.0-100.0); MEAN CORPUSCULAR HEMOGLOBIN 30.9 PG (27.0-34.0); MEAN CORPUSCULAR HGB CONC 32.5 % (32.0-36.0); MONO % 8.9 % (0.0-8.0); PLATELET COUNT 144 TH/MM3 (150-450); RED BLOOD COUNT 3.56 MIL/MM3 (4.50-5.90); RED CELL DISTRIBUTION WIDTH 15.5 % (11.6-17.2)
[2016-06-20 05:02] LABS: HEMO FLAGS AUTO DIFF
[2016-06-20 05:19] LABS: BICARBONATE 23.7 MEQ/L (21.0-32.0); POTASSIUM 4.6 MEQ/L (3.5-5.1)
[2016-06-20 07:02] LABS: PLATELET ESTIMATE SMEAR LOW (NORMAL); PLATELET MORPHOLOGY NORMAL (NORMAL); SCAN/DIFF AUTO DIFF CONFIRMED
[2016-06-20] MEDS: MULTIVITAMINS/MINERALS THERAPEUTIC TAB PO SCH (09:30)
[2016-06-20] MEDS: ASCORBIC ACID 500 MG TAB PO SCH (09:31)
[2016-06-20] MEDS: AMIODARONE 200 MG TAB PO SCH (09:31)
--- NOTE | 2016-06-20 10:51 | RADRPT ---
EXAM DATE/TIME: 06/20/2016 10:21 [facility] COMPARISON: CHEST SINGLE AP, June 19, 2016, 12:14. INDICATIONS : Congestive heart failure MEDICAL HISTORY : Hypertension. Congestive heart failure. SURGICAL HISTORY : None. ENCOUNTER: Subsequent ACUITY: 3 days PAIN SCORE: Non-responsive. LOCATION: Bilateral chest FINDINGS: There is persistence of cardiac enlargement with mild vascular congestion, central interstitial promi nence and small effusions. There has been slight improvement from yesterday's exam. CONCLUSION: Slightly improved CHF Rome Peterson MD on June 20, 2016 at 10:46 Board Certified Radiologist. This report was verified electronically.
[2016-06-20] MEDS: TAMSULOSIN HCL 0.4 MG CAP PO SCH (20:37)
--- NOTE | 2016-06-20 23:35 | HHI.PR ---
Subjective Remarks Patient seen this morning around 9:30 AM. Patient reports generalized fatigue. He does report some shortness of breath. Denies any chest pain. Denies any cough. He does report a dull intermittent right flank pain which is controlled. Objective Vital Signs Date Time Temp Pulse Resp B/P Pulse Ox O2 Delivery O2 Flow Rate FiO2 06/20/16 20:00 98.4 63 18 160/66 93 06/20/16 19:56 Nasal Cannula 4.00 06/20/16 16:00 97.4 61 17 169/72 93 06/20/16 12:00 98.2 62 16 154/67 95 06/20/16 08:50 68 06/20/16 08:50 95 Nasal Cannula 3.00 06/20/16 08:00 4.00 06/20/16 08:00 99.3 73 18 180/80 90 06/20/16 06:28 98.7 68 20 179/79 92 06/20/16 00:00 98.8 62 18 160/68 92 I/O 06/19/16 06/19/16 06/19/16 06/20/16 06/20/16 06/20/16 07:00 15:00 23:00 07:00 15:00 23:00 Intake Total 603 ml 840 ml 120 ml 120 ml 240 ml 240 ml Output Total 125 ml 700 ml 1550 ml 825 ml 550 ml 550 ml Balance 478 ml 140 ml -1430 ml -705 ml -310 ml -310 ml Intake Oral 120 ml 840 ml 120 ml 120 ml 240 ml 240 ml IV Total 483 ml Output Urine Total 125 ml 700 ml 1550 ml 825 ml 550 ml 550 ml # Bowel Movements 0 0 0 0 0 Result Diagram: 06/20/165 06/20/16314 Objective Remarks GENERAL: Patient sitting up in recliner.He is alert and oriented 3. SKIN: Warm and dry. HEAD: Normocephalic. EYES: No scleral icterus. No injection or drainage. NECK: Supple, trachea midline. No JVD. CARDIOVASCULAR: Regular rate and rhythm without murmurs, gallops, or rubs. RESPIRATORY: Breath sounds equal bilaterally. No accessory muscle use. GASTROINTESTINAL: Abdomen soft, non-tender, nondistended. MUSCULOSKELETAL: No cyanosis. 2+ bilateral lower extremity edema - slightly improved from yesterday. Legs are elevated. BACK: Nontender without obvious deformity. No CVA tenderness. A/P Assessment and Plan Mr. Talley is a 86 year-old male with a 3.1 cm renal cell carcinoma right kidney, atrial fibrillation on Coumadin and flecainide, hypertension, and BPH who presented to the hospital on 06/18/2016 for tissue cryoablation of a renal mass. Urinary retention occured following procedure with concern for emboli from cryoablation causing obstruction. A ann catheter was attempted in IR but could not be placed. Dr. Girish Hartley, urologist, to see for cystoscopy guided ann insertion. //Right renal cell carcinoma s/p cryoablation 06/18/16 with urinary retention and concern for embolic urinary tract obstruction - Urology consulted - Dr. Hartley for Ann catheter placement/assistance with retention. -06/19. Discussed with Dr. Treviño. Nursing called urology, who recommends leaving Ann in due to difficult Ann insertion and high risk of obstruction. He'll need follow-up with urology, as well as Dr. Treviño as outpatient. //Hematuria s/p catheter placement - Continue to hold Coumadin/Jantoven -06/19 Improved, light with no clots currently.- flush Ann q2h prn blood clots -We'll need to leave Ann in with leg bag, follow-up with urology as outpatient. Appreciate urology assistance. //Hypoxic respiratory failure. Acute on 06/19 // CHF exacerbation acute on 06/19. Secondary to fluid overload from IV fluids -06/19. Pulse ox in the 70s on room air. Chest x-ray ordered, personally reviewed with bilateral pulmonary edema. ABG with hypoxia. Likely secondary to IV fluids. BNP moderately elevated in the 200s. Give Lasix 40 mg IV 1 continue to monitor intake and output. Discussed with nursing. -06/20. respiratory status slightly improved with diuresis. Order strict intake and output. Appreciate Cardiology assistance. on echo,Patient has RVSP of 64 mmHg, indicating likely pulmonary hypertension. //Acute on stage 3 chronic kidney failure - BUN 48, creatinine 2.11, estimated GFR 30 on admission - Continue to hold Lisinopril for now - monitor bp closely -06/19 Discontinue IV hydration secondary to CHF exacerbation. -Continue to monitor kidney function and avoid nephrotoxins. Expect to worsen slightly secondary to renal ablation. //Type 2 diabetes mellitus. Glucose appears diet-controlled. Diabetic diet Bradycardia, asymptomatic - continuous cardiac telemetry to monitor for cardiac arrhythmias - monitor VS q4h DVT prophylaxis - SCDs - chemoprophylaxis contraindicated due to hematuria Discharge Planning Pending treatment of CHF exacerbation. Patient will need follow-up urology, Dr. Treviño as outpatient. Allen Jacobs MD June 20, 2016 23:35
[2016-06-21] VITALS (10 sets, daily range): BP systolic 139–171; BP diastolic 61–73; PULSE 55–114; RESP 17–20; TEMP 97.4–99.5; O2SAT 92–96
[2016-06-21 06:41] LABS: AUTOMATED NEUTROPHIL # 7.5 TH/MM3 (1.8-7.7); BASOPHIL % 0.3 % (0.0-2.0); EOSINOPHIL # 0.1 TH/MM3 (0-0.4); EOSINOPHIL % 1.5 % (0.0-4.0); HEMATOCRIT 29.8 % (39.0-51.0); HEMO FLAGS DIFF FINAL; LYMPHOCYTE # 0.7 TH/MM3 (1.0-4.8); MEAN CORPUSCULAR HEMOGLOBIN 32.4 PG (27.0-34.0); MEAN CORPUSCULAR HGB CONC 34.5 % (32.0-36.0); MONO % 9.5 % (0.0-8.0); NEUT % 80.7 % (16.0-70.0); PLATELET COUNT 134 TH/MM3 (150-450); RED BLOOD COUNT 3.17 MIL/MM3 (4.50-5.90); RED CELL DISTRIBUTION WIDTH 15.2 % (11.6-17.2); WHITE BLOOD COUNT 9.3 TH/MM3 (4.0-11.0)
[2016-06-21 06:42] LABS: BICARBONATE 24.7 MEQ/L (21.0-32.0); MAGNESIUM 2.3 MG/DL (1.5-2.5); POTASSIUM 4.1 MEQ/L (3.5-5.1)
[2016-06-21] MEDS: ASCORBIC ACID 500 MG TAB PO SCH (08:00)
[2016-06-21] MEDS: AMIODARONE 200 MG TAB PO SCH (08:00)
[2016-06-21] MEDS: MULTIVITAMINS/MINERALS THERAPEUTIC TAB PO SCH (08:00)
--- NOTE | 2016-06-21 10:22 | HHI.PR ---
Subjective Remarks Patient seen for follow up cyoablation of renal mass. 06/21/2016 - patient seen and evaluated. AFVSS. Sats are 92% on 3L. -1030 balance with UOP 1750. No weight from today. Cody c/o mild SOB this morning. States he worked with PT yesterday (assessment not available in EMR yet) and had significant SOB with transition alone. No other complaints at this time. Denies any CP, ab pain, N/V, or F/C. Objective Vitals Vital Signs Date Time Temp Pulse Resp B/P Pulse Ox O2 Delivery O2 Flow Rate FiO2 06/21/16 08:20 92 Nasal Cannula 3.00 06/21/16 08:00 98.0 59 17 156/71 92 06/21/16 04:00 97.5 64 18 169/69 93 06/21/16 00:00 99.5 65 18 152/61 93 06/20/16 20:00 62 06/20/16 20:00 98.4 63 18 160/66 93 06/20/16 19:56 Nasal Cannula 4.00 06/20/16 16:00 97.4 61 17 169/72 93 06/20/16 12:00 98.2 62 16 154/67 95 I/O 06/20/16 06/20/16 06/20/16 06/21/16 06/21/16 06/21/16 07:00 15:00 23:00 07:00 15:00 23:00 Intake Total 120 ml 240 ml 240 ml 240 ml 120 ml Output Total 825 ml 550 ml 550 ml 650 ml Balance -705 ml -310 ml -310 ml -410 ml 120 ml Intake Oral 120 ml 240 ml 240 ml 240 ml 120 ml Output Urine Total 825 ml 550 ml 550 ml 650 ml # Bowel Movements 0 0 Result Diagram: 06/21/16 0337 06/21/16 0337 Objective Remarks GENERAL: Patient sitting up in recliner.He is alert and oriented 3. SKIN: Warm and dry. HEAD: Normocephalic. EYES: No scleral icterus. No injection or drainage. NECK: Supple, trachea midline. No JVD. CARDIOVASCULAR: Regular rate and rhythm without murmurs, gallops, or rubs. RESPIRATORY: Breath sounds equal bilaterally. No accessory muscle use. Wet- sounding rales at the bases bilaterally (R>L). GASTROINTESTINAL: Abdomen soft, non-tender, nondistended. Ann in place, draining red-colored urine. MUSCULOSKELETAL: No cyanosis. 2+ bilateral lower extremity edema - slightly improved from yesterday. Legs are elevated. BACK: Nontender without obvious deformity. No CVA tenderness. A/P Problem List: (1) Renal cell carcinoma of right kidney ICD Code: C64.1 Status: Acute (2) Urinary retention ICD Code: R33.9 Status: Acute (3) Hematuria ICD Code: R31.9 Status: Acute (4) Bradycardia ICD Code: R00.1 Status: Acute (5) Acute on chronic renal failure ICD Code: N17.9 Status: Acute Assessment and Plan Mr. Talley is a 86 year-old male with a 3.1 cm renal cell carcinoma right kidney, atrial fibrillation on Coumadin and flecainide, hypertension, and BPH who presented to the hospital on 06/18/2016 for tissue cryoablation of a renal mass. Urinary retention occurred following procedure with concern for emboli from cryoablation causing obstruction. A ann catheter was attempted in IR but could not be placed. Dr. Girish Hartley, urologist, to see for cystoscopy guided ann insertion. //Right renal cell carcinoma s/p cryoablation 06/18/16 with urinary retention and concern for embolic urinary tract obstruction - Urology consulted - Dr. Hartley for Ann catheter placement/assistance with retention. -06/19. Discussed with Dr. Treviño. Nursing called urology, who recommends leaving Ann in due to difficult Ann insertion and high risk of obstruction. He'll need follow-up with urology, as well as Dr. Treviño as outpatient. //Hematuria s/p catheter placement - Continue to hold Coumadin/Jantoven -06/19 Improved, light with no clots currently.- flush Ann q2h prn blood clots -We'll need to leave Ann in with leg bag, follow-up with urology as outpatient. Appreciate urology assistance. //Hypoxic respiratory failure. Acute on 06/19 // CHF exacerbation acute on 06/19. Secondary to fluid overload from IV fluids -06/19. Pulse ox in the 70s on room air. Chest x-ray ordered, personally reviewed with bilateral pulmonary edema. ABG with hypoxia. Likely secondary to IV fluids. BNP moderately elevated in the 200s. Give Lasix 40 mg IV 1 continue to monitor intake and output. Discussed with nursing. -06/20. Respiratory status slightly improved with diuresis. Order strict intake and output. Appreciate Cardiology assistance. on echo,Patient has RVSP of 64 mmHg, indicating likely pulmonary hypertension. -06/21. Respiratory status essentially unchanged. Will check repeat CXR. Still has O2 requirement (does not use O2 at home). Home O2 test tomorrow. //Acute on stage 3 chronic kidney failure - BUN 48, creatinine 2.11, estimated GFR 30 on admission - Continue to hold Lisinopril for now - monitor bp closely -06/19 Discontinue IV hydration secondary to CHF exacerbation. -Continue to monitor kidney function and avoid nephrotoxins. Expect to worsen slightly secondary to renal ablation. //Type 2 diabetes mellitus. Glucose appears diet-controlled. Diabetic diet Bradycardia, asymptomatic - continuous cardiac telemetry to monitor for cardiac arrhythmias - monitor VS q4h DVT prophylaxis - SCDs - chemoprophylaxis contraindicated due to hematuria Discharge Planning Discharge pending improvement of respiratory status/CHF. Anticipate this will take another 1-2 days. May need rehab before DC home, given significant SOB, even with transfers. Will f/u PT recs. Problem Qualifiers (1) Acute on chronic renal failure: Qualified Code: N17.9 - Acute renal failure superimposed on stage 3 chronic kidney disease, unspecified acute renal failure type Alexx Schulte MD R3 June 21, 2016 10:22
--- NOTE | 2016-06-21 11:17 | RADRPT ---
EXAM DATE/TIME: 06/21/2016 10:46 [facility] COMPARISON: CHEST SINGLE AP, June 20, 2016, 10:21. INDICATIONS : Shortness of breath MEDICAL HISTORY : Hypertension. Congestive heart failure. SURGICAL HISTORY : None. ENCOUNTER: Subsequent ACUITY: 4 - 6 days PAIN SCORE: 0/10 LOCATION: Bilateral chest FINDINGS: A single AP portable erect view of the chest was obtained and again demonstrates mild to moderate car diomegaly. Hazy perihilar and bibasal opacities are present with blunting of the costophrenic angles. There are mild atherosclerotic changes in the aorta. The findings do not appear significantly change d. The bony thorax remains intact. There are overlying electrocardiogram leads. CONCLUSION: No significant change. Findings consistent with mild congestive heart failure. Bo Reza MD on June 21, 2016 at 11:14 Board Certified Radiologist. This report was verified electronically.
--- NOTE | 2016-06-21 15:35 | HHI.FPPN ---
Addendum to progress note ADDENDUM Reason for addendum: Additonal documentation Additional information Repeat CXR reviewed. No significant change compared to prior. Will hold off on diuretic today given concern for THERESA. Alexx Schulte MD R3 June 21, 2016 15:35
[2016-06-21] MEDS: TAMSULOSIN HCL 0.4 MG CAP PO SCH (19:39)
[2016-06-22] VITALS: BP 148/56; PULSE 58; RESP 18; TEMP 97.8; O2SAT 95
[2016-06-22 04:00] VITALS: BP 168/64; PULSE 60; RESP 18; TEMP 98.2; O2SAT 93
[2016-06-22 04:19] LABS: HEMATOCRIT 30.4 % (39.0-51.0); MEAN CELL VOLUME 95.1 FL (80.0-100.0); MEAN CORPUSCULAR HEMOGLOBIN 31.7 PG (27.0-34.0); MEAN CORPUSCULAR HGB CONC 33.3 % (32.0-36.0); PLATELET COUNT 138 TH/MM3 (150-450); RED CELL DISTRIBUTION WIDTH 15.2 % (11.6-17.2); REVIEW FLAG FINAL; WHITE BLOOD COUNT 8.2 TH/MM3 (4.0-11.0)
[2016-06-22 04:24] LABS: BICARBONATE 25.4 MEQ/L (21.0-32.0); POTASSIUM 4.1 MEQ/L (3.5-5.1)
[2016-06-22] MEDS: MULTIVITAMINS/MINERALS THERAPEUTIC TAB PO SCH (07:52)
[2016-06-22] MEDS: AMIODARONE 200 MG TAB PO SCH (07:52)
[2016-06-22] MEDS: ASCORBIC ACID 500 MG TAB PO SCH (07:52)
[2016-06-22 08:00] VITALS: BP 166/75; PULSE 60; PULSE 62; RESP 17; TEMP 97.9; O2SAT 92
--- NOTE | 2016-06-22 10:27 | HHI.PR ---
Subjective Remarks No acute events overnight. Afebrile, vital signs stable. Hematuria resolved. Patient states his shortness of breath is much improved although he is still requiring 3 L by nasal cannula. Saturation 92%. Objective Vitals Vital Signs Date Time Temp Pulse Resp B/P Pulse Ox O2 Delivery O2 Flow Rate FiO2 06/22/16 08:20 92 Nasal Cannula 3.00 Humidified 06/22/16 08:00 60 06/22/16 08:00 97.9 62 17 166/75 92 06/22/16 04:00 98.2 60 18 168/64 93 06/22/16 00:00 97.8 58 18 148/56 95 06/21/16 20:19 Nasal Cannula 3.00 Humidified 06/21/16 20:00 97.9 60 18 152/62 96 06/21/16 19:59 62 06/21/16 16:00 98.2 55 18 139/63 95 06/21/16 15:00 59 06/21/16 12:00 97.4 57 19 171/73 94 06/21/16 11:32 92 Nasal Cannula 4.00 I/O 06/21/16 06/21/16 06/21/16 06/22/16 06/22/16 06/22/16 07:00 15:00 23:00 07:00 15:00 23:00 Intake Total 240 ml 882 ml 240 ml 240 ml 120 ml Output Total 650 ml 550 ml 350 ml 700 ml Balance -410 ml 332 ml -110 ml -460 ml 120 ml Intake Oral 240 ml 880 ml 240 ml 240 ml 120 ml IV Total 2 ml 0 ml 0 ml Output Urine Total 650 ml 550 ml 350 ml 700 ml # Bowel Movements 0 1 Result Diagram: 06/22/16 0253 06/22/16 0253 Objective Remarks GENERAL: Patient sitting up in recliner.He is alert and oriented 3. SKIN: Warm and dry. HEAD: Normocephalic. EYES: No scleral icterus. No injection or drainage. NECK: Supple, trachea midline. No JVD. CARDIOVASCULAR: Regular rate and rhythm without murmurs, gallops, or rubs. RESPIRATORY: Breath sounds equal bilaterally. No accessory muscle use. GASTROINTESTINAL: Abdomen soft, non-tender, nondistended. Ann in place, draining clear yellow-colored urine. MUSCULOSKELETAL: No cyanosis. 1 + bilateral lower extremity edema - improved from yesterday. Legs are elevated. BACK: Nontender without obvious deformity. No CVA tenderness. A/P Problem List: (1) Renal cell carcinoma of right kidney ICD Code: C64.1 Status: Acute (2) Urinary retention ICD Code: R33.9 Status: Acute (3) Hematuria ICD Code: R31.9 Status: Acute (4) Bradycardia ICD Code: R00.1 Status: Acute (5) Acute on chronic renal failure ICD Code: N17.9 Status: Acute Assessment and Plan Mr. Talley is a 86 year-old male with a 3.1 cm renal cell carcinoma right kidney, atrial fibrillation on Coumadin and flecainide, hypertension, and BPH who presented to the hospital on 06/18/2016 for tissue cryoablation of a renal mass. Urinary retention occurred following procedure with concern for emboli from cryoablation causing obstruction. A ann catheter was attempted in IR but could not be placed. Dr. Girish Hartley, urologist, to see for cystoscopy guided ann insertion. //Right renal cell carcinoma s/p cryoablation 06/18/16 with urinary retention and concern for embolic urinary tract obstruction - Urology consulted - Dr. Hartley for Ann catheter placement/assistance with retention. -06/19. Discussed with Dr. Treviño. Nursing called urology, who recommends leaving Ann in due to difficult Ann insertion and high risk of obstruction. He'll need follow-up with urology, as well as Dr. Treviño as outpatient. //Hematuria s/p catheter placement - Continue to hold Coumadin/Jantoven -06/19 Improved, light with no clots currently.- flush Ann q2h prn blood clots -06/22 hematuria resolved -We'll need to leave Ann in with leg bag, follow-up with urology as outpatient. Appreciate urology assistance. //Hypoxic respiratory failure. Acute on 06/19 // CHF exacerbation acute on 06/19. Secondary to fluid overload from IV fluids -06/19. Pulse ox in the 70s on room air. Chest x-ray ordered, personally reviewed with bilateral pulmonary edema. ABG with hypoxia. Likely secondary to IV fluids. BNP moderately elevated in the 200s. Give Lasix 40 mg IV 1 continue to monitor intake and output. Discussed with nursing. -06/20. Respiratory status slightly improved with diuresis. Order strict intake and output. Appreciate Cardiology assistance. on echo,Patient has RVSP of 64 mmHg, indicating likely pulmonary hypertension. -06/21. Respiratory status essentially unchanged. Will check repeat CXR. Still has O2 requirement (does not use O2 at home). Home O2 test tomorrow. -06/22. Patient states shortness of breath is resolved. Still requiring 3 L O2 nasal cannula. Await walk test. Patient will likely need to be discharged on home oxygen. //Acute on stage 3 chronic kidney failure - BUN 48, creatinine 2.11, estimated GFR 30 on admission - Continue to hold Lisinopril for now - monitor bp closely -06/19 Discontinue IV hydration secondary to CHF exacerbation. -Continue to monitor kidney function and avoid nephrotoxins. Expect to worsen slightly secondary to renal ablation. //Type 2 diabetes mellitus. Glucose appears diet-controlled. Diabetic diet Bradycardia, asymptomatic - continuous cardiac telemetry to monitor for cardiac arrhythmias - monitor VS q4h DVT prophylaxis - SCDs - chemoprophylaxis contraindicated due to hematuria Discharge Planning Patient will require rehabilitation on discharge. Likely to facility tomorrow. Problem Qualifiers (1) Acute on chronic renal failure: Qualified Code: N17.9 - Acute renal failure superimposed on stage 3 chronic kidney disease, unspecified acute renal failure type Rosibel Smith MD R3 June 22, 2016 10:27
[2016-06-22 12:00] VITALS: BP 138/65; PULSE 58; RESP 19; TEMP 98.1; O2SAT 95
[2016-06-22 16:00] VITALS: BP 143/65; PULSE 66; RESP 17; TEMP 97.3; O2SAT 95
[2016-06-22] MEDS: TAMSULOSIN HCL 0.4 MG CAP PO SCH (19:53)
[2016-06-22 20:00] VITALS: BP 157/73; PULSE 60; PULSE 62; RESP 17; TEMP 99.1; O2SAT 95
[2016-06-23] VITALS: BP 159/74; PULSE 61; RESP 18; TEMP 97.3; O2SAT 95
[2016-06-23 04:00] VITALS: BP 157/70; PULSE 62; RESP 18; TEMP 97.1; O2SAT 94
[2016-06-23 05:06] LABS: AUTOMATED NEUTROPHIL # 5.3 TH/MM3 (1.8-7.7); BASOPHIL % 0.4 % (0.0-2.0); EOSINOPHIL # 0.3 TH/MM3 (0-0.4); EOSINOPHIL % 4.3 % (0.0-4.0); HEMATOCRIT 30.4 % (39.0-51.0); HEMO FLAGS DIFF FINAL; LYMPH % 9.3 % (9.0-44.0); LYMPHOCYTE # 0.6 TH/MM3 (1.0-4.8); MEAN CELL VOLUME 94.7 FL (80.0-100.0); MEAN CORPUSCULAR HEMOGLOBIN 31.6 PG (27.0-34.0); MEAN CORPUSCULAR HGB CONC 33.4 % (32.0-36.0); PLATELET COUNT 155 TH/MM3 (150-450); RED BLOOD COUNT 3.21 MIL/MM3 (4.50-5.90); RED CELL DISTRIBUTION WIDTH 15.1 % (11.6-17.2); WHITE BLOOD COUNT 6.9 TH/MM3 (4.0-11.0)
[2016-06-23 05:28] LABS: POTASSIUM 3.9 MEQ/L (3.5-5.1)
[2016-06-23 08:00] VITALS: BP_SYST 166; BP_SYST 173; BP_DIAS 73; BP_DIAS 74; PULSE 61; RESP 20; TEMP 97.4; O2SAT 93
[2016-06-23] MEDS: ASCORBIC ACID 500 MG TAB PO SCH (08:00)
[2016-06-23] MEDS: MULTIVITAMINS/MINERALS THERAPEUTIC TAB PO SCH (08:00)
[2016-06-23] MEDS: AMIODARONE 200 MG TAB PO SCH (08:00)
--- NOTE | 2016-06-23 09:50 | HHI.DS ---
Discharge Summary Admission Date June 19, 2016 at 3:16 pm Discharge Date: June 23, 2016 Admitting Diagnosis Urinary retention, right renal cell carcinoma (1) Renal cell carcinoma of right kidney ICD Code: C64.1 Diagnosis: Principal (2) Urinary retention ICD Code: R33.9 Diagnosis: Principal (3) Hematuria ICD Code: R31.9 (4) Bradycardia ICD Code: R00.1 (5) Acute on chronic renal failure ICD Code: N17.9 Procedures right renal cryoablation. Brief History - From Admission Mr. Talley is a 86 year-old male with a 3.1 cm renal cell carcinoma right kidney, atrial fibrillation on Coumadin and flecainide, diet controlled type 2 diabetes mellitus, hypertension, and BPH who presented to the hospital on 06/18/2016 for tissue cryoablation of a renal mass. Urinary retention occurred following procedure with concern for emboli from cryoablation causing obstruction. A Ann catheter was attempted in IR but could not be placed. Dr. Girish Hartley, urologist, to see for cystoscopy guided Ann insertion. The patient is seen in his hospital room. He reports that he had a "pre- arranged procedure" for right renal cell carcinoma which was diagnosed in October 2015 while he was hospitalized for diverticulitis. He says that he had to be admitted because anesthesia "messes everything up". He says he was unable to urinate and multiple people have a hard time trying to catheterize him. Finally, Dr. Hartley was able to catheterize him and explained to him that a valve between the bladder and the urethra was "closed". The catheter is noted to be draining a dark red bloody tinged urine. He reports occasional shortness of breath but denies any history of COPD. He denies any fevers, chest pain, nausea, vomiting, or diarrhea. He reports a history of urinary hesitancy due to BPH. He complains of vocal hoarseness following intubation for procedure today. He uses a 4 wheel walker at home for ambulation as he has long-standing paresthesias in his right leg (has had for years) that causes imbalance. He is very cautious when standing up and moving about because he is fearful of falling. He reports mild swelling in lower extremities. He denies coronary artery disease, COPD or any other breathing problems, thyroid dysfunction, seizures, and problems with blood clots such as DVT, PE or CVA. Dr. Allen Jeronimo is urologist Dr. Jey Treviño interventional radiologist CBC/BMP: 06/23/162 06/23/16411 Significant Findings Laboratory Tests Test 06/21/16 06/22/16 06/23/16 03:37 02:53 04:12 Red Blood Count 3.17 MIL/MM3 3.20 MIL/MM3 3.21 MIL/MM3 (4.50-5.90) (4.50-5.90) (4.50-5.90) Hemoglobin 10.3 GM/DL 10.1 GM/DL 10.1 GM/DL (13.0-17.0) (13.0-17.0) (13.0-17.0) Hematocrit 29.8 % 30.4 % 30.4 % (39.0-51.0) (39.0-51.0) (39.0-51.0) Platelet Count 134 TH/MM3 138 TH/MM3 (150-450) (150-450) Neutrophils (%) (Auto) 80.7 % 77.0 % (16.0-70.0) (16.0-70.0) Lymphocytes (%) (Auto) 8.0 % (9.0-44.0) Monocytes (%) (Auto) 9.5 % (0.0-8.0) 9.0 % (0.0-8.0) Lymphocytes # (Auto) 0.7 TH/MM3 0.6 TH/MM3 (1.0-4.8) (1.0-4.8) Blood Urea Nitrogen 49 MG/DL (7-18) 51 MG/DL (7-18) 47 MG/DL (7-18) Creatinine 2.60 MG/DL 2.21 MG/DL 1.97 MG/DL (0.60-1.30) (0.60-1.30) (0.60-1.30) Estimat Glomerular Filtration 24 ML/MIN (>89) 29 ML/MIN (>89) 33 ML/MIN (>89) Rate Albumin 2.4 GM/DL (3.4-5.0) Chloride Level 108 MEQ/L (98-107) Eosinophils (%) (Auto) 4.3 % (0.0-4.0) Random Glucose 122 MG/DL (74-106) Calcium Level 8.3 MG/DL (8.5-10.1) Imaging Last Impressions Chest X-Ray 06/21/16 0000 Signed Impressions: Service Date/Time: Tuesday, June 21, 2016 10:46 - CONCLUSION: No significant change. Findings consistent with mild congestive heart failure. Bo Reza MD CT Guided Tissue Ablation 06/18/16 0924 Signed Impressions: Service Date/Time: Saturday, June 18, 2016 09:56 - CONCLUSION: Uncomplicated cryoablation as above. Jey Treviño MD PE at Discharge GENERAL: Patient sitting up in recliner.He is alert and oriented 3. SKIN: Warm and dry. HEAD: Normocephalic. EYES: No scleral icterus. No injection or drainage. NECK: Supple, trachea midline. No JVD. CARDIOVASCULAR: Regular rate and rhythm without murmurs, gallops, or rubs. RESPIRATORY: Breath sounds equal bilaterally. No accessory muscle use. GASTROINTESTINAL: Abdomen soft, non-tender, nondistended. Ann in place, draining clear yellow-colored urine. MUSCULOSKELETAL: No cyanosis. 1 + bilateral lower extremity edema - improved from yesterday. Legs are elevated. BACK: Nontender without obvious deformity. No CVA tenderness. Pt update on day of discharge Patient is currently doing well. Afebrile. No acute concerns. SNF arranged. Hospital Course Mr. Talley is a 86 year-old male with a 3.1 cm renal cell carcinoma right kidney, atrial fibrillation on Coumadin and flecainide, hypertension, and BPH who presented to the hospital on 06/18/2016 for tissue cryoablation of a renal mass. Urinary retention occurred following procedure with concern for emboli from cryoablation causing obstruction. A ann catheter was attempted in IR but could not be placed. Dr. Girish Hartley, urologist, to see for cystoscopy guided ann insertion. //Right renal cell carcinoma s/p cryoablation 06/18/16 with urinary retention and concern for embolic urinary tract obstruction - Urology consulted - Dr. Hartley for Ann catheter placement/assistance with retention. -06/19. Discussed with Dr. Treviño. Nursing called urology, who recommends leaving Ann in due to difficult Ann insertion and high risk of obstruction. He'll need follow-up with urology, as well as Dr. Treviño as outpatient. //Hematuria s/p catheter placement - Continue to hold Coumadin/Jantoven -06/19 Improved, light with no clots currently.- flush Ann q2h prn blood clots -06/22 hematuria resolved -We'll need to leave Ann in with leg bag, follow-up with urology as outpatient. Appreciate urology assistance. //Hypoxic respiratory failure. Acute on 06/19 // CHF exacerbation acute on 06/19. Secondary to fluid overload from IV fluids -06/19. Pulse ox in the 70s on room air. Chest x-ray ordered, personally reviewed with bilateral pulmonary edema. ABG with hypoxia. Likely secondary to IV fluids. BNP moderately elevated in the 200s. Give Lasix 40 mg IV 1 continue to monitor intake and output. Discussed with nursing. -06/20. Respiratory status slightly improved with diuresis. Order strict intake and output. Appreciate Cardiology assistance. on echo,Patient has RVSP of 64 mmHg, indicating likely pulmonary hypertension. -06/21. Respiratory status essentially unchanged. Will check repeat CXR. Still has O2 requirement (does not use O2 at home). Home O2 test tomorrow. -06/22. Patient states shortness of breath is resolved. Still requiring 3 L O2 nasal cannula. Await walk test. Patient will likely need to be discharged on home oxygen. //Acute on stage 3 chronic kidney failure - BUN 48, creatinine 2.11, estimated GFR 30 on admission - Continue to hold Lisinopril for now - monitor bp closely -06/19 Discontinue IV hydration secondary to CHF exacerbation. -Continue to monitor kidney function and avoid nephrotoxins. Expect to worsen slightly secondary to renal ablation. //Type 2 diabetes mellitus. Glucose appears diet-controlled. Diabetic diet Bradycardia, asymptomatic - continuous cardiac telemetry to monitor for cardiac arrhythmias - monitor VS q4h DVT prophylaxis - SCDs - chemoprophylaxis contraindicated due to hematuria Pt Condition on Discharge: Stable Discharge Disposition: Discharge to SNF Discharge Time: > 30 minutes Discharge Instructions DIET: Follow Instructions for: Diabetic Diet Activities you can perform: Regular-No Restrictions Follow up Referrals: Clinic with Jey Treviño MD PCP Follow-up - 1 Week PCP Follow-up - 1 Week Urology with Phani Changed Medications: Amlodipine (Amlodipine) 5 Mg Tab 10 MG PO DAILY Blood Pressure Management #30 Ref 0 TAB (Changed from: 5 MG) Continued Medications: Amiodarone (Amiodarone) 200 Mg Tab 200 MG PO DAILY Regulate Heart Beat #30 Ref 0 TAB Ascorbic Acid (Vitamin C) 500 Mg Chew 500 MG CHEW DAILY Nutritional Supplement #30 Ref 0 TAB Cholecalciferol (Vitamin D3) 5,000 Unit Tab 5000 UNITS PO DAILY Nutritional Supplement #1 Ref 0 BOTTLE Multiple Vitamins W/ Minerals (Multivitamin Adults) 1 Tab 1 TAB PO DAILY Nutritional Supplement Ref 0 TAB Tamsulosin (Tamsulosin) 0.4 Mg Cap 0.4 MG PO HS Manage Prostate Problems #30 Ref 0 CAP Warfarin (Jantoven) 4 Mg Tab 4 MG PO DAILY Blood Clot Prevention #30 Ref 0 TAB Discontinued Medications: Lisinopril (Lisinopril) 40 Mg Tab 40 MG PO DAILY Blood Pressure Management #30 Ref 0 TAB Darlyn Garcia DO June 23, 2016 09:50
[2016-06-23 11:06] VITALS: O2SAT 93
[2016-06-23 12:00] VITALS: BP 163/74; PULSE 63; RESP 16; TEMP 97.7; O2SAT 94
== END 2016-06-23 16:32 | DRG 659 ==
LOC: HROP 06:46 → HRIP 06:47 → N07A 20:15 → HROP 20:15 → OBSVTOIN 06-19 15:16
PROVIDERS: ADMIT Hospitalist; ATTEND Hospitalist
PROC: 0T503ZZ Destruction of Right Kidney, Percutaneous Approach (ICD-10-PCS; principal; 2016-06-18)
PROC: 0T9B80Z Drainage of Bladder with Drainage Device, Via Natural or Artificial Opening Endoscopic (ICD-10-PCS; 2016-06-19)
DX: N99.89 Other postprocedural complications and disorders of genitourinary system (principal); I50.33 Acute on chronic diastolic (congestive) heart failure; J96.01 Acute respiratory failure with hypoxia; N17.9 Acute kidney failure, unspecified; C64.1 Malignant neoplasm of right kidney, except renal pelvis; I13.0 Hypertensive heart and chronic kidney disease with heart failure and stage 1 through stage 4 chronic kidney disease, or unspecified chronic kidney disease; E11.22 Type 2 diabetes mellitus with diabetic chronic kidney disease; I48.91 Unspecified atrial fibrillation; R31.9 Hematuria, unspecified; E86.0 Dehydration; R33.8 Other retention of urine; N18.3 Chronic kidney disease, stage 3 (moderate); R39.11 Hesitancy of micturition; N40.1 Benign prostatic hyperplasia with lower urinary tract symptoms; R00.1 Bradycardia, unspecified; I45.10 Unspecified right bundle-branch block; I27.2 Other secondary pulmonary hypertension; R20.2 Paresthesia of skin; Z23 Encounter for immunization; Z79.01 Long term (current) use of anticoagulants; Z80.1 Family history of malignant neoplasm of trachea, bronchus and lung; Z80.3 Family history of malignant neoplasm of breast; Z80.6 Family history of leukemia; Z85.828 Personal history of other malignant neoplasm of skin
CPT/HCPCS: 36600; 50593; 71010; 77013; 80048; 80069; 82805; 83036; 83735; 83880; 85014; 85018; 85025; 85027; 85610; 85730; 90732; 93005; 93306; 94150; 94664; 94667; 94668; C2618; J0690; J1940; J2405; J2710; J3010; J7030; J7613

== ENCOUNTER 2016-07-04 13:33 | Day surgery (SDC) | payer OTHER ==
[~2016-07-04 13:33] MED LIST changes: -ACET325 PO; -LISI-363 PO; -LISI40TA PO
[2016-07-04 13:55] VITALS: BP 146/63; PULSE 60; RESP 18; TEMP 98; O2SAT 97
--- NOTE | 2016-07-04 15:22 | RADRPT ---
EXAM DATE/TIME: 07/04/2016 14:03 [facility] COMPARISON : INDICATIONS : FOLLOW UP POST RENAL CRYO ABLATION OBJECTIVE: Temperature: 98.0 Heart Rate: 60 Blood Pressure: 146/63 Respiratory: 16 Oximetry: 97 PNEUMONIA VACCINE: YES HISTORY OF PRESENT ILLNESS: The patient is an 86-year-old who underwent cryoablation of a right renal mass. The patient initially did very well from the procedure however was noted to have urinary retention post procedure and was admitted to the hospital. The patient had a Dawson placed by the urology service as he had known advan tomasz hypertrophy of the prostate. The patient's post procedure course was uncomplicated by UTI. The kassidy villeda is currently doing significantly better. PAST MEDICAL HISTORY : 1. Right renal mass 2. Chronic renal failure 3. Atrial fibrilation 4. Diverticulitis 5. CHF 6. BPH 7. Diabetes PAST SURGICAL HISTORY : 1. Right cryo ablation (June 2016) 2. Umbilical hernia repair 3. Skin ca removed SOCIAL HISTORY : No alcohol use. Tobacco;none. NKDA 1. amlodipine 10 mg q.d. 2. amiodarone 200 mg q.d. 3. ceftin 250 mg b.i.d. 4. lasix 20 mg b.i.d. 5. levaquin 500 mg q.d. 6. KCl 10 MEQ q.d. 7. flomax 0.4 mg q.h.s. coumadin 6 mg q.d. ASSESSMENT: The patient is post cryoablation of right renal mass. The patient's Dawson remains in place due to an enlarged prostate and urinary retention. PLAN: The patient will follow up with Dr. Luc Babin post rehabilitation for Dawson removal. TIME SPENT: 10 mins Jey Treviño MD on July 04, 2016 at 15:12 Board Certified Radiologist. This report was verified electronically.
== END 2016-07-04 14:30 ==
LOC: HROP 13:33 → HRIP 13:35 → HROP 14:30
PROVIDERS: ATTEND Radiology Body Imaging
DX: N28.89 Other specified disorders of kidney and ureter (principal); E11.9 Type 2 diabetes mellitus without complications; Z79.01 Long term (current) use of anticoagulants
CPT/HCPCS: 99212; G0463